=== PATIENT | female | born 1970 | race American Indian/Alaskan Native ===

== ENCOUNTER 2017-05-14 13:35 | Emergency (ER) | payer OTHER ==
[2017-05-14 13:52] VITALS: BP 144/95
[2017-05-14] MEDS ORDERED: NORCO 5/325 PO ONE (16:07)
[2017-05-14] MEDS ORDERED: FLEXERIL PO ONE (16:07)
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
== END 2017-05-14 18:00 | disposition home or self-care (01) ==
LOC: ED 13:35
DX: S09.90XA Unspecified injury of head, initial encounter (principal); S20.211A Contusion of right front wall of thorax, initial encounter; G44.319 Acute post-traumatic headache, not intractable; M25.511 Pain in right shoulder; Y04.0XXA Assault by unarmed brawl or fight, initial encounter; Y93.89 Activity, other specified; Y92.89 Other specified places as the place of occurrence of the external cause; Y99.8 Other external cause status
CPT/HCPCS: 70450